=== PATIENT | male | born 1995 | race African-American/Black ===

== ENCOUNTER 2017-03-31 06:01 | Day surgery (SDC) | END 2017-03-31 11:53 | disposition home or self-care (01) ==

== ENCOUNTER 2018-07-06 06:11 | Day surgery (SDC) | payer BC ==
[2018-07-05 12:10] VITALS: Ht 177.8 cm; Wt 79.0 kg
[2018-07-06] VITALS (11 sets, daily range): BP systolic 133–155; BP diastolic 65–97; PULSE 72–84; RESP 10–21
[~2018-07-06] VITALS: Ht 177.8 cm; Wt 79.0 kg
[2018-07-06] MEDS ORDERED: ROCURONIUM 50 MG INJ ONE ×2 (07:00→07:42)
--- NOTE | 2018-07-06 07:17 | PREAC ---
Date/Time of Note Date/Time of Note DATE: 07/06/18 TIME: 07:16 Anesthesia Eval and Record Evaluation Time Pre-Procedure Interview DATE: 07/06/18 TIME: 07:16 Age 22 Sex male NPO: 8 hrs Preoperative diagnosis LEFT ACL TEAR Planned procedure LEFT ACL RECONSTRUCTION Past Medical History Past Medical History: Includes Pulm: Smoking Hx (MARIJUANA DAILY) Surgery & Anesthesia Issues No known issue Meds Anticoagulation: No Beta Porsha within 24 hr: No Reason Beta Porsha not given: Pt. not on B-Porsha No Active Prescriptions or Reported Meds Meds reviewed: Yes Allergies Coded Allergies: No Known Allergies (Verified Allergy, Unknown, 07/06/18) Allergies Reviewed: Yes Labs/Studies Labs Reviewed: Reviewed by anesthesiologist test: N/A Pre-procedure Exam Last vitals Vital Signs Date Temp Pulse Resp B/P (MAP) Pulse Ox O2 O2 Flow FiO2 Time Delivery Rate 07/06/18 98.2 77 18 136/74 100 Room Air 07:06 (94) Airway: Adequate mouth opening, Adequate thyromental dist Mallampati: Mallampati II Teeth: Normal Lung: Normal Heart: Normal ASA Physical Status ASA physical status: 2 Emergency: None Planned Anesthetic General/MAC: ETT Nerve block: Femoral (left) Planned Pain Management Single shot nerve block, Parenteral pain med Pre-operative Attestations Prior to commencing anesthesia and surgery, the patient was re-evaluated, there was verification of: *The patient's identity *The results of appropriate recent lab work and preoperative vital signs *The above evaluation not changing prior to induction *Anesthetic plan, risk benefits, alternative and complications discussed with patient/family; questions answered; patient/family understands, accepts and wishes to proceed. Ramy Mckeon M.D. July 06, 2018 07:17
[2018-07-06] MEDS ORDERED: LABETALOL HCL 20MG INJ IV PRN (07:30)
[2018-07-06] MEDS ORDERED: MEPERIDINE 25 MG INJ IV PRN (07:30)
[2018-07-06] MEDS ORDERED: MIDAZOLAM 1 MG/ML 2 ML INJ IV PRN (07:30)
[2018-07-06] MEDS ORDERED: ALBUTEROL 0.083% (NEB) 2.5 MG/3 ML AMP HHN PRN (07:30)
[2018-07-06] MEDS ORDERED: TRIMETHOBENZAMIDE 100 MG/ML VIAL IM PRN (07:30)
[2018-07-06] MEDS ORDERED: ONDANSETRON 4 MG INJ IV PRN (07:30)
[2018-07-06] MEDS ORDERED: hydrALAzine 20 MG INJ IV PRN (07:30)
[2018-07-06] MEDS ORDERED: DIPHENHYDRAMINE 50 MG INJ IV PRN (07:30)
[2018-07-06] MEDS ORDERED: HYDROmorphONE 1 MG/5 ML IV SYRINGE IV PRN ×3 (07:30)
[2018-07-06] MEDS ORDERED: OXYCODONE/ACETAMINOPHEN (5/325) TAB PO PRN ×2 (07:30)
[2018-07-06] MEDS ORDERED: EPHEDrine SULFATE 50 MG/5 ML SYG IV PRN (07:30)
[2018-07-06] MEDS ORDERED: FENTAnyl 50 MCG/ML VIAL IV PRN ×3 (07:30)
[2018-07-06] MEDS ORDERED: IPRATROPIUM (NEB) 0.5 MG/2.5 ML AMP HHN PRN (07:30)
[2018-07-06] MEDS ORDERED: ROPIVACAINE 0.5 % 30 ML VIAL ONE ×2 (07:34→07:47)
[2018-07-06] MEDS ORDERED: POLYMYXIN/BACITRACIN 1L IRRIG ONE (07:34)
[2018-07-06] MEDS ORDERED: POVIDONE IODINE 10% 28.4 GM OINT ONE (07:34)
[2018-07-06] MEDS ORDERED: PROPOFOL 20 ML ONE (07:42)
[2018-07-06] MEDS ORDERED: GLYCOPYRROLATE 0.4 MG INJ ONE (07:42)
[2018-07-06] MEDS ORDERED: NEOSTIGMINE 3 MG/3 ML SYRINGE ONE (07:43)
[2018-07-06] MEDS ORDERED: CEFAZOLIN 1 GM INJ ONE (07:43)
[2018-07-06] MEDS ORDERED: DEXAMETHASONE 4 MG/ML 5 ML INJ ONE (07:45)
[2018-07-06] MEDS ORDERED: MIDAZOLAM 1 MG/ML 2 ML INJ ONE (07:45)
[2018-07-06] MEDS ORDERED: FENTAnyl 50 MCG/ML VIAL ONE ×2 (07:45→08:53)
[2018-07-06] MEDS ORDERED: ONDANSETRON 4 MG INJ ONE (07:45)
[2018-07-06] MEDS ORDERED: SUGAMMADEX SODIUM 200 MG/2 ML VIAL IV ONE (10:55)
[2018-07-06] MEDS ORDERED: KETOROLAC 30 MG INJ ONE (10:55)
--- NOTE | 2018-07-06 11:04 | HPN ---
Date/Time of Note Date/Time of Note DATE: 07/06/18 TIME: 11:04 Interval H&P Admission Note Pt. seen H&P reviewed: No system changes LUCAS BAINS MD July 06, 2018 11:04
--- NOTE | 2018-07-06 11:10 | OPR ---
Date/Time of Note Date/Time of Note DATE: 07/06/18 TIME: 11:07 Operative Report Procedure Date: July 06, 2018 Preoperative Diagnosis Left knee ACL tear Left Knee MCL tear Postoperative Diagnosis Left knee ACL tear Left Knee MCL tear Left knee discoid lateral meniscus Operation/Procedure Performed Left knee arthroscopy with ACL reconstruction with Hamstring autograft Left Knee MCL repair open Left knee arthroscopy with lateral meniscus saucerization/partial meniscotomy Application of Amniotic Membrane Application of PRP Surgeon Lucas Bains MD Manager Scheduling STARLA Olivas Anesthesia Type: general, other (Fascia ilacus) Anesthesiologist: Ramy Mckeon M.D. Tourniquet Time: 81 min at 250 mm Hg Estimated Blood Loss: minimal Transfusion none Specimen none Grafts/Implants Arthrex Amnion, Cristobal PRP2% Arthrex Adjustable Loop Tightrope Arthrex 10 size Graft bolt screw Complications none Pt Condition Post Procedure: stable Disposition: PACU Indications Is a 22-year-old male who sustained a left knee ACL tear and MCL tear. Patient ongoing instability leads to the need for reconstruction and repair of his l igament injury. Risk Note: Patient was explained the risks and benefits of surgery and the patient's [place] tribe language including not limited to infection, bleeding, injury to blood vessels, nerves, ligaments or tendons. Risks of anesthesia, deep vein thrombosis and need for reduce future surgery. Patient acknowledged these risk by signing the surgical consent form. Procedure Description Patient was met in the preoperative holding area and the correct operative extremity was confirmed with both patient and consent. Patient was given preoperative fascial iliacus block was placed. Patient was brought to the operative theater and placed supine on the operative table. Patient was given general anesthesia and preoperative antibiotics. The left lower extremity was examined under anesthesia. Range of motion was 0 degrees of extension to 135 degrees of flexion. There was no varus or valgus or posterolateral instability. He had no instability to varus or valgus stress at 0 or 30 degrees. He had a 2+ Akil and drawer with a positive pivot shift The left lower extremity was then prepped and draped in the usual fashion. A tourniquet was placed proximally on the thigh over a bias stockinette. A standard anterolateral parapatellar stab wound was created. The knee joint was entered with a blunt-tipped obturator, followed by the 30-degree video arthroscope. An anteromedial portal was established under arthroscopic control. A routine arthroscopic survey was performed. The suprapatellar pouch was unremarkable. The undersurface of the patella was well-preserved. The patella appeared to track centrally within the trochlear groove. There was no chondromalacia under the lateral patella facet. The trochlea no chondromalacia. The medial and lateral gutters were inspected and there was no loose body seen. There was no hypertrophied plica. The popliteal hiatus was entered and was unremarkable. The lateral compartment was entered. The lateral femoral condyle exhibited no chondromalacia and the lateral tibial plateau showed no chondromalacia. There was no chondromalacia adjacent to the notch. There was no chondromalacia along the central aspect of the weight bearing lateral tibial plateau. The lateral meniscus was found to be discoid in nature with some tearing along the inner groove of the meniscus. It was then treated with both a biter and the shaver to create a firm and stable rim. It was then probed and found to be stable with no tear The intercondylar notch was visualized. The anterior cruciate ligament was torn from its femoral origin. Posteromedially there was no loose body seen. The posterior cruciate ligament was visualized and appeared intact. The medial compartment was entered. The articular surfaces of the medial femor al condyle and medial tibial plateau were well maintained. There was minimal chondromalacia noted on the medial femoral condyle, and chondromalacia noted on the medial tibial plateau. The meniscus was then probed and found stable Attention was turned to reconstruction of the anterior cruciate ligament. Following exsanguination with an Esmarch bandage the tourniquet was inflated to 250 mm of mercury. Using a motorized shaver a limited notchplasty was performed, exposing the lateral wall and roof of the notch, identifying the juze-www-ter position. The stump of the anterior cruciate ligament was debrided. A Vector guide was placed intra-articularly between the tibial spines in line with the anterior horn of the lateral meniscus. A Yun wire was then inserted into the knee through a 2 cm incision made over the proximal medial tibia for the hamstring harvest. The incision was deepened through the subcutaneous tissue with subperiosteal dissection achieved. Bleeding points were coagulated with the Bovie electrocautery. The Semitendinosus and gracilis were harvested and taken to the back table, and a tripled. The new construct then was created accommodating a 9.5 mm graft on the femoral side and 9 mm graft on the tibial side Tibial drilling was then carried out first with a 6.5 mm followed by a 9 mm cylindrical reamer with the guide set at 55 degrees. Via an cutter the femoral tunnel was then created, with a guidewire, Depth- gauging confirmed a tunnel length of 25 mm with the reaming proceeded, with an 9.5 mm reamer. A adjustable loop Arthrex tight rope button was selected. The graft was wrapped with an amnion graft to improve healing of the ACL graft and incorporation of the ACL graft. It was inserted intra-articularly and the Arthrex tight rope button was deployed. The graft was cycled for 20 cycles with 25 pounds of force to pre-load the graft. Tibial fixation was carried out using a size 10 graft bolt screw in 10 degrees of flexion with a posterior drawer. At the completion of surgery the patient had a firm stable Akil. There was a negative pivot shift. The patient had a 0 firm Akil and a negative pivot shift. There was no evidence for any roof or lateral wall impingement. The tourniquet was deflated at 81 minutes. The knee was irrigated with two liters of lactated Ringer's solution. Excess fluid was drained. The tibial wounds were then copiously irrigated with bacitracin solution and closed in layers with #0, #2-0 and #3-0 Vicryl. The skin was reapproximated with 3-0 then #4-0 Monocryl. The ACL was then injected with PRP. A 4-soaked sterile dressing was applied, followed by a bulky bandage and bailey wrap, insuring no contact with the skin. A postoperative TROM brace was applied locked in full extension. The patient was awakened in the Operating Room and transported to the Recovery Room in satisfactory condition. The patient appeared to tolerate the procedure well. At the completion of surgery the patient had soft compartments, palpable pulses, and brisk capillary refill. There were no complications noted. Patient will begin partial weightbearing with his knee locked in extension next week. He will begin full range of motion when seated. LUCAS BAINS MD July 06, 2018 11:10
--- NOTE | 2018-07-06 11:19 | PAC ---
Date/Time of Note Date/Time of Note DATE: 07/06/18 TIME: 11:19 Post-Anesthesia Notes Post-Anesthesia Note Last documented vital signs Vital Signs Date Temp Pulse Resp B/P (MAP) Pulse Ox O2 O2 Flow FiO2 Time Delivery Rate 07/06/18 98.2 77 18 136/74 100 Room Air 07:06 (94) Activity: WNL Respiratory function: WNL Cardiovascular function: WNL Mental status: Baseline Pain reasonably controlled: Yes Hydration appropriate: Yes Nausea/Vomiting absent: Yes Ramy Mckeon M.D. July 06, 2018 11:19
[2018-07-06] MEDS ORDERED: KETOROLAC 30 MG INJ IV SCH (11:30)
[2018-07-06] MEDS ORDERED: morphine 2 MG INJ IV PRN (11:30)
== END 2018-07-06 12:55 | disposition home or self-care (01) ==
LOC: SDS 06:11
PROVIDERS: ATTEND Orthopaedic Surgery
DX: S83.512D Sprain of anterior cruciate ligament of left knee, subsequent encounter (principal); S83.412D Sprain of medial collateral ligament of left knee, subsequent encounter; X58.XXXD Exposure to other specified factors, subsequent encounter
CPT/HCPCS: 27405; 29880; 29888; 82306; J0690; J1100; J1885; J2175; J2250; J2405; J2795; J3010; Z7512; Z7610; J2710

== ENCOUNTER 2018-07-16 23:50 | Emergency (ER) | payer BC ==
[~2018-07-16] VITALS: Ht 177.8 cm; Wt 81.6 kg
[2018-07-16 23:55] VITALS: Ht 177.8 cm; Wt 81.6 kg
[2018-07-17] MEDS ORDERED: KETOROLAC 60 MG INJ IM STA (00:38)
[2018-07-17] MEDS ORDERED: HYDROCODONE/APAP (5/325) TAB PO ONE (01:00)
[2018-07-17] MEDS ORDERED: NAPR-985 PO (01:51)
[2018-07-17] MEDS ORDERED: TRAM50TA PO (01:51)
--- NOTE | 2018-07-17 01:57 | ERD ---
ER Documentation Chief Complaint Chief Complaint L leg swelling/hard to touch on back of leg s/p leg sx 10 days ago HPI History of Present Illness: 22-year-old male who denies past medical history coming in today with complaint of left leg swelling in legs feeling tight there is been present for the past 3-4 days. Patient reports he had surgery due to ACL/MCL injury approximately 10 days ago. Patient was seen by surgeon and was given a referral to come to emergency department for rule out of DVT. At home pharmacological/nonpharmacological treatment for symptoms: Denies Denies social concerns; Denies recent foreign travel ROS All systems reviewed and are negative except as per history of present illness. Medications Home Meds Active Scripts Tramadol Hcl* (Ultram*) 50 Mg Tablet, 50 MG PO Q8 PRN for PAIN LEVEL 6-10, #10 TAB Prov:CLARA CROOKS NP 07/17/18 Naproxen* (Naprosyn*) 500 Mg Tablet, 500 MG PO BID PRN for MILD PAIN/SWELLING/INFLAMMATIO, #30 TAB Prov:CLARA CROOKS NP 07/17/18 Allergies Allergies: Coded Allergies: No Known Allergies (Verified Allergy, Unknown, 07/06/18) PMhx/Soc History of Surgery: No Anesthesia Reaction: No Hx Neurological Disorder: No Hx Respiratory Disorders: No Hx Cardiac Disorders: No Hx Psychiatric Problems: No Hx Miscellaneous Medical Probl: No Hx Alcohol Use: No Hx Substance Use: Yes (marijuana) Hx Tobacco Use: No Smoking Status: Never smoker FmHx Family History: diabetes, coronary disease Physical Exam Vitals Vital Signs Date Temp Pulse Resp B/P (MAP) Pulse Ox O2 O2 Flow FiO2 Time Delivery Rate 07/16/18 97.4 102 20 144/64 98 23:55 (90) Physical Exam Const: No acute distress Head: Atraumatic Eyes: Normal Conjunctiva ENT: Normal External Ears, Nose and Mouth. Neck: Full range of motion. No meningismus. Resp: Clear to auscultation bilaterally Cardio: Regular rate and rhythm, no murmurs Abd: Soft, non tender, non distended. Normal bowel sounds Skin: No petechiae or rashes Back: No midline or flank tenderness Ext: No cyanosis; positive swelling noted to left lower extremity to KNEE, no signs of infection noted to surgical site, no warmth noted, neurovascularly intact distally Neur: Awake and alert Psych: Normal Mood and Affect Results 24 hrs Current Medications Medications Dose Sig/Tanya Start Time Status Last (Trade) Ordered Route PRN Stop Time Admin Dose Reason Admin 1 tab ONCE ONCE 07/17/18 DC 07/17/18 Acetaminophen PO 01:00 00:44 / 07/17/18 01:01 Hydrocodone Bitart (Winslow (5/325)) Ketorolac 60 mg ONCE STAT 07/17/18 DC 07/17/18 Tromethamine IM 00:38 00:44 (Toradol) 07/17/18 00:39 Procedures/MDM ED course includes a thorough examination and history. Medications: Ketorolac, Winslow Imaging: Venous Doppler ultrasound Labs: Low suspicion for life-threatening medical emergency. Low suspicion for DVT. Low suspicion for neurovascular compromise. Otherwise healthy patient presenting with constellation of symptoms likely representing pain and left leg as characterized by history, physical exam findings, imaging findings. Radiology reports reviewed; report shows no signs of DVT. Patient reassessment@0150: Patient hemodynamically stable. Patient with decreased pain. No physical signs of pain. Verbalizes understanding of instructions and results. No respiratory distress, otherwise relatively well appearing and nontoxic. Disposition given. Patient educated on diagnoses, prescriptions, follow-up care, return precautions. Strict return precautions given for worsening condition; questions answered discharge. Disposition for discharge with followup in 2 days with PCP/clinic. Departure Diagnosis: Primary Impression: Pain in left leg Condition: Stable Patient Instructions: R.I.C.E. Referrals: COMMUNITY CLINICS YOU HAVE RECEIVED A MEDICAL SCREENING EXAM AND THE RESULTS INDICATE THAT YOU DO NOT HAVE A CONDITION THAT REQUIRES URGENT TREATMENT IN THE EMERGENCY DEPARTMENT. FURTHER EVALUATION AND TREATMENT OF YOUR CONDITION CAN WAIT UNTIL YOU ARE SEEN IN YOUR DOCTORS OFFICE WITHIN THE NEXT 1-2 DAYS. IT IS YOUR RESPONSIBILITY TO MAKE AN APPOINTMENT FOR FOLOW-UP CARE. IF YOU HAVE A PRIMARY DOCTOR --you should call your primary doctor and schedule an appointment IF YOU DO NOT HAVE A PRIMARY DOCTOR YOU CAN CALL OUR PHYSICIAN REFERRAL HOTLINE AT IF YOU CAN NOT AFFORD TO SEE A PHYSICIAN YOU CAN CHOSE FROM THE FOLLOWING [facility] CLINICS [facility] [address] [facility]. [facility] [address] [facility]. [facility] [address] [facility] [facility] [address] [facility] [facility] [address] [facility]. [facility]. [address] [facility] [facility] YOU HAVE RECEIVED A MEDICAL SCREENING EXAM AND THE RESULTS INDICATE THAT YOU DO NOT HAVE A CONDITION THAT REQUIRES URGENT TREATMENT IN THE EMERGENCY DEPARTMENT. FURTHER EVALUATION AND TREATMENT OF YOUR CONDITION CAN WAIT UNTIL YOU ARE SEEN IN YOUR DOCTORS OFFICE WITHIN THE NEXT 1-2 DAYS. IT IS YOUR RESPONSIBILITY TO MAKE AN APPOINTMENT FOR FOLOW-UP CARE. IF YOU HAVE A PRIMARY DOCTOR --you should call your primary doctor and schedule and appointment IF YOU DO NOT HAVE A PRIMARY DOCTOR YOU CAN CALL OUR PHYSICIAN REFERRAL HOTLINE AT . IF YOU CAN NOT AFFORD TO SEE A PHYSICIAN YOU CAN CHOSE FROM THE FOLLOWING [facility] INSTITUTIONS: [facility] [address] [place] [address] [facility] [address] [place] [address] [facility] [address] [place] [address] Additional Instructions: Thank you very much for allowing us to participate in your care. Your health and safety is our top priority at [facility]. It is important to read all discharge instructions and education provided in your discharge packet. Call your primary care doctor TOMORROW for an appointment during the next 2-4 days and bring all the information and medications prescribed. Have prescriptions filled and follow precisely the directions on the label. -Naproxen is a anti-inflammatory/pain medication; take this medication daily as prescribed for the next week to help with swelling/inflammation/pain. -Tramadol is an opiate pain medication; take this medication as needed for moderate to severe pain. No operating of heavy machinery while taking this medication. It may cause drowsiness. Do not mix this medication with alcohol. If the symptoms get worse and your provider is unavailable, return to the Emergency Department immediately. CLARA CROOKS NP July 17, 2018 01:56
[2018-07-17 02:01] VITALS: BP 138/72; PULSE 78; RESP 20
== END 2018-07-17 02:02 | disposition home or self-care (01) ==
LOC: FTE 23:50
DX: M79.605 Pain in left leg (principal)
CPT/HCPCS: 93971; 96372; 99284; J1885; Z7610